=== PATIENT | male | born 2000 | race Caucasian/White ===

== ENCOUNTER 2024-06-26 10:23 | Emergency (ER) | payer OTHER, SELFPAY ==
[2024-06-26 10:25] VITALS: BP 166/94; PULSE 79; RESP 18; TEMP 36.5; O2SAT 98; BMI 50.5
--- NOTE | 2024-06-26 10:45 | EKG12_ITS ---
Test Reason : SYNCOPE Blood Pressure : */* mmHG Vent. Rate : 80 BPM Atrial Rate : 80 BPM P-R Int : 162 ms QRS Dur : 76 ms QT Int : 330 ms P-R-T Axes : 8 61 27 degrees QTcB Int : 380 ms Normal sinus rhythm Normal ECG Confirmed by SCOTTY HIDALGO, KODAK ([id number]), makeup editor KATIE CARLISLE ([id number]) on 07/04/2024 6:38:44 AM Referred By: Confirmed By: KODAK FAJARDO MD
--- NOTE | 2024-06-26 10:58 | EX.ED.DYSGE1 ---
HPI History of Present Illness Chief Complaint: Syncope Narrative Narrative: Patient is a 23-year-old male with no known significant past medical history does not follow with a physician on a regular basis who presented to the emergency department the chief complaint of passing out twice last night. He states that he was playing board games with family noted that he became very hot and flushed during this and states that he stood up to go outside and on his way outside that he passed out his significant other caught him prior to him falling hitting the ground. He states that he was able to get up and walk around. He states that when he got home a similar episode occurred again where he passed out. Patient notes he has not had a recent travel history denies a history of blood clots. He states that this has not happened before. Patient states that he feels that he may not have been drinking enough fluids recently. 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 He states that during his times he does not get shortness of breath he does not have any chest pain and has overall no symptoms when he is working hard. PFSH PFS Allergy/AdvReac Type Severity Reaction Status Date / Time No Known Allergies Allergy Verified 06/26/24 10:25 Social History Smoking Status: Never smoker ROS ROS ED ROS Narrative Constitutional: Denies any fevers, chills, headaches, lightness, dizziness Eyes: Denies change in vision double vision blurry vision Cardiovascular: Denies chest pain or palpitations Respiratory: Denies coughing wheezing shortness of breath Abdomen: Denies abdominal pain nausea vomit diarrhea : Denies any urinary symptoms Neurological: Denies any numbness, weakness, tingling Musculoskeletal: Denies back pain Skin: Denies any rashes or lesions EXAM Physical Exam Narrative Exam Narrative: General: Patient was lying in bed rest comfortably did not appear to be in acute distress Head: Atraumatic, normocephalic Eyes: PERRL bilaterally, EOMI bilaterally, no conjunctival injection noted Neck: Soft, supple, trachea midline Cardiovascular: Regular in rhythm no murmurs gallops rubs noted Respiratory: Clear to auscultation bilaterally no rales rhonchi or wheezes noted Abdomen: Soft, nondistended, nontender to palpation Extremities: +5/5 strength noted in the bilateral upper and lower extremities, radial pulses +2/4 in the bilateral extremities, no pedal edema on exam Neurological: Patient following commands knew that he was at [facility] year is 2024 sensation grossly intact NIH of 0 GCS 15 Skin: Warm, dry, intact no rashes or lesions noted Const Vital Signs: 06/26/24 10:25 06/26/24 10:45 06/26/24 12:24 Temperature 97.7 F L Temperature Source Oral Pulse Rate 79 79 Respiratory Rate 18 Blood Pressure 166/94 H 159/80 H Blood Pressure Mean 118 106 Pulse Ox 98 97 Oxygen Delivery Method Room Air Room Air MDM MDM MDM Narrative Medical decision making narrative: Patient is a 23-year-old male who presented to the emergency department with a chief complaint of passing out twice last night. He states that he has not passed out since then and feels back to her normal self. Patient's was resting comfortably in bed. On the differential diagnose includes but not limited to cardiac arrhythmia, dehydration, vasovagal syncope. Once workup is obtained reviewed he will be reevaluated. Patient CBC reviewed and was largely unremarkable no evidence leukocytosis white blood count normal 8.3, hemoglobin 14.9, plate count was noted be normal at 266. Patient sodium normal 139, potassium normal at 4.3, creatinine was normal at 0.92. Patient's troponin normal at 7, EKG reviewed and showed sinus rhythm with a rate of 80 bpm. IN interval was 162, QTc of 380. Patient was ambulated here in the emergency department tolerated this well he feels well and would like to go home at this point time. He is encouraged to follow-up with a primary care physician outpatient setting return with worsening symptoms or concerns. He is agreeable this plan all question concerns answered he is discharged home in stable condition. Lab Data Labs: Laboratory Results - last 24 hr 06/26/24 11:20 WBC 8.3 RBC 5.53 Hgb 14.9 Hct 45.3 MCV 81.9 MCH 26.9 L MCHC 32.9 RDW Std Deviation 37.9 RDW Coeff of Nilesh 12.8 Plt Count 266 MPV 9.0 Immature Gran % (Auto) 0.800 Neut % (Auto) 58.3 Lymph % (Auto) 26.4 [place] % (Auto) 10.0 Eos % (Auto) 4.1 Baso % (Auto) 0.4 Absolute Neuts (auto) 4.8 Absolute Lymphs (auto) 2.19 Nucleated RBC % 0 Sodium 139 Potassium 4.3 Chloride 107 Carbon Dioxide 30.0 Anion Gap 2 L BUN 15 Creatinine 0.92 Estim Creat Clear Calc 186.92 Est GFR (MDRD) Af Amer 128 Est GFR (MDRD) Non-Af 106 BUN/Creatinine Ratio 16.3 Glucose 106 Calcium 9.1 Troponin I High Sens 7 Radiography Diagnostic Testing: Clinical Impression(s) from Imaging Studies Chest X-Ray 06/26/24 11:27 IMPRESSION: Normal x-ray examination of the chest. Electronically Signed: Cuco Dejesus MD at 11:52 EST , Discharge Plan Triage Chief Complaint: Syncope ED Provider: Brandan Baca Dx/Rx/DC Orders Clinical Impression: Syncope Primary Care Provider: Care Physician,No Primary Referrals: NOT,DEFINED [Non-Staff] - Anne Mujica [facility], DO [[facility]] - Activity Restrictions/Additional Instructions: Follow-up your doctor in outpatient setting. Return with worsening symptoms or any concerns. You were referred to a family physician. Print Language: Setswana Disposition Disposition: Home, Self Care
--- NOTE | 2024-06-26 11:27 | RAD_ITS ---
STUDY: X-RAY CHEST REASON FOR EXAM: Male, 23 years old. Chest pain TECHNIQUE: PA and lateral views of the chest. COMPARISON: None. FINDINGS: EKG electrodes are seen. The lungs are clear and expanded. There is no demonstrated pleural abnormality. Normal size heart. Normal mediastinum and ankit. Normal visualized pulmonary arteries. Normal visualized aortic arch and descending thoracic aorta. Normal visualized thoracic spine. Normal visualized ribs, clavicles, and shoulders. There is no demonstrated abnormality of the visualized soft tissue structures of the upper abdomen. RAD/Chest PA and Lateral IMPRESSION: Normal x-ray examination of the chest. Electronically Signed: Cuco Dejesus MD at 11:52 EST ,
[2024-06-26] MEDS: 0.9% Normal Saline (1000mL) 1,000 ML 999 ML IV (12:03)
[2024-06-26 12:05] LABS: Absolute Lymphocyte Count 2.19 X10^3/uL (0.83-4.51); Absolute Neutrophil Count 4.8 X10^3/uL (2.0-7.7); Basophil# 0.03 X10^3/uL; Basophil% 0.4 % (0-1); Eosinophil# 0.34 X10^3/uL; Eosinophils% 4.1 % (0-5); Hematocrit 45.3 % (40-54); Hemoglobin 14.9 g/dL (13.0-16.5); Lymphocyte # 2.19 X10^3/ul (0.83-4.51); Lymphocyte % 26.4 % (19-41); Mean Corp Hgb Conc 32.9 g/dL (32-36); Mean Corpuscular Hgb 26.9 pg (27.0-32.0); Mean Corpuscular Volume 81.9 fL (80-94); Monocyte# 0.83 X10^3/uL; NRBC Flagged by Analyzer 0 % (0-5); Neutrophil # 4.84 X10^3/uL (2.7-7.7); Neutrophil % 58.3 % (47-70); Platelet Count 266 K/mm3 (150-450); RBC Distribution Width CV 12.8 % (11.6-14.6); RBC Distribution Width SD 37.9 fl (35.1-43.9); Red Blood Count 5.53 M/mm3 (4.6-6.2); White Blood Count 8.3 K/mm3 (4.4-11.0)
[2024-06-26 12:23] LABS: Anion Gap 2 (5-15); BUN 15 mg/dL (7-18); BUN/Creat Ratio 16.3 RATIO (10-20); Calcium,Total 9.1 mg/dL (8.5-10.1); Chloride 107 mmol/L (98-107); Creatinine, Serum 0.92 mg/dL (0.70-1.30); EST Glomerular Filtration Rate 106 mL/min (>60); Est Glom Filt Rate - Afr Amer 128 mL/min (>60); Estimated Creatinine Clearance 186.92 ml/min; Glucose 106 mg/dL (74-106); Potassium 4.3 mmol/L (3.5-5.1); Sodium Level 139 mmol/L (136-145); Troponin-I HS 7 pg/mL (3.0-78.0)
[2024-06-26 12:24] VITALS: BP 159/80; PULSE 79; O2SAT 97
[2024-06-26 12:51] VITALS: O2SAT 97
--- NOTE | 2024-06-26 13:02 | CM.ED ---
Social work Reason for referral: no PCP Referral source: case find This SW identified patient's lack of PCP and need for resources. This SW entered patient's room, introducing self and role at [facility]. Patient's significant other, Aiyana, at bedside, and permission given by patient to talk in front of guest. 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 Patient accepted resources of [facility] Provider Directory and Miranda Vargas information. Patient stated living in [place], but preferring [facility] over closer providers. Patient stated having a syncopal episode years ago and when seen at another hospital, patient stated doctors believed it was a panic attack. Patient stated having stress currently due to work environment and patient stated not knowing if patient has been diagnosed with anxiety. Patient stated attending counseling years ago when patient's ex made me have PTSD for slashing my tires when I wanted to go somewhere. Patient stated feeling more anxious lately and stated a desire to get back on medication. Patient accepted further resources of local counseling and psychiatry resources, stating again that the drive to [place] was worth it. Patient denied further needs at this time. Myriam Mckeon, RADIOLOGIST, TIME PIECE REPAIRER
== END 2024-06-26 13:10 | disposition home or self-care (01) ==
PROVIDERS: Emergency Provider Emergency Medicine; Visit Provider Emergency Medicine
DX: R55 Syncope and collapse (principal)
CPT/HCPCS: 71046; 80048; 84484; 85025; 93005; 96360; 99284